=== PATIENT | female | born 1980 | race Two or more races ===

== ENCOUNTER 2025-07-05 08:00 | Day surgery (SDC) | payer OTHER ==
[2025-06-28 11:54] VITALS: BP 122/72
[~2025-07-05] VITALS: Ht 165.1 cm; Wt 101.2 kg
[~2025-07-05 08:00] MED LIST: PRILOSEC OTC20 MG PO
[2025-07-05] MEDS ORDERED: POVIDONE-IODINE 118 ML BOTT TOP ONE (13:49)
[2025-07-05] MEDS ORDERED: IBU800 MG PO ×2 (15:09)
[2025-07-05] MEDS ORDERED: ONDANSETRON HCL 2 MG/ML VIAL ONE (20:05)
== END 2025-07-05 22:40 | disposition home or self-care (01) ==
LOC: CIR.AMB 08:00
PROVIDERS: ATTEND Obstetrics & Gynecology Gynecology
DX: D25.0 Submucous leiomyoma of uterus (principal); N84.0 Polyp of corpus uteri; N72 Inflammatory disease of cervix uteri

== ENCOUNTER → 2025-07-12 | Emergency (ER) | payer OTHER ==
[~2025-07-12] MED LIST changes: +IBU800 MG PO
== END | disposition left against medical advice (07) ==
LOC: ER 10:52
DX: Z53.21 Procedure and treatment not carried out due to patient leaving prior to being seen by health care provider (principal)